=== PATIENT | male | born 1985 | race Caucasian/White ===

== ENCOUNTER 2018-10-26 22:06 | Emergency (ER) | payer MEDICAID ==
[2018-10-26 22:23] VITALS: O2SAT 96
--- NOTE | 2018-10-26 22:32 | ERPHSYRPT ---
- History of Present Illness Time Seen by Provider: 10/26/18 22:32 Historian: patient, family Exam Limitations: no limitations Patient Subjective Stated Complaint: Fever/Vomiting Triage Nursing Assessment: Patient ambulated back to ED and transferred self to bed. Patient A+O X 3. Patient complains of fever of 101.0 about one hour ago. Patient complains of vomiting for a few hours. Patient has non-productive cough. Patients lungs clear a/p victorino. Abdomen soft and round with BS X 4. Patient states his entire body aches 7/10. Physician History: 33 y/o white male presents with one day h/o fever to 101F, nonproductive cough, myalgias and arthralgias and vomiting. Timing/Duration: today Activities at Onset: none Quality: other (no abd pain) Severity of Pain-Max: none Severity of Pain-Current: none Modifying Factors: Improves With: coughing, vomiting Associated Symptoms: fever/chills, nausea, vomiting Previous symptoms: no prior history Allergies/Adverse Reactions: lidocaine Allergy (Verified 10/26/18 22:12) Hx Influenza Vaccination/Date Given: No Immunizations Up to Date: Yes - Review of Systems Constitutional: Fever Eyes: No Symptoms Ears, Nose, & Throat: No Symptoms Respiratory: Cough Cardiac: No Symptoms Abdominal/Gastrointestinal: Nausea, Vomiting, No Abdominal Pain, No Diarrhea Genitourinary Symptoms: No Symptoms Musculoskeletal: No Symptoms Skin: No Symptoms Neurological: No Symptoms Psychological: No Symptoms Endocrine: No Symptoms Hematologic/Lymphatic: No Symptoms Immunological/Allergic: No Symptoms All Other Systems: Reviewed and Negative - Past Medical History Pertinent Past Medical History: No Neurological History: No Pertinent History ENT History: No Pertinent History Cardiac History: No Pertinent History Respiratory History: No Pertinent History Endocrine Medical History: No Pertinent History Musculoskeletal History: No Pertinent History GI Medical History: No Pertinent History History: No Pertinent History Psycho-Social History: No Pertinent History Male Reproductive Disorders: No Pertinent History - Past Surgical History Past Surgical History: Yes Neuro Surgical History: No Pertinent History Cardiac: No Pertinent History Respiratory: No Pertinent History Gastrointestinal: No Pertinent History Genitourinary: No Pertinent History Musculoskeletal: Orthopedic Surgery Male Surgical History: No Pertinent History Other Surgical History: Victorino knee surgery 2009 - Social History Smoking Status: Never smoker Exposure to second hand smoke: No Drug Use: none Patient Lives Alone: No - Nursing Vital Signs Nursing Vital Signs: Initial Vital Signs Temperature 98.2 F 10/26/18 22:14 Pulse Rate 124 H 10/26/18 22:14 Respiratory Rate 18 10/26/18 22:14 Blood Pressure 120/86 10/26/18 22:14 O2 Sat by Pulse Oximetry 96 10/26/18 22:14 Pain Scale Pain Intensity 7 - Physical Exam General Appearance: mild distress, alert, anxiety Eye Exam: PERRL/EOMI, eyes nml inspection Ears, Nose, Throat Exam: normal ENT inspection, TMs normal, pharynx normal, moist mucous membranes Neck Exam: normal inspection, non-tender, supple, full range of motion Respiratory Exam: normal breath sounds, lungs clear, airway intact, No chest tenderness, No respiratory distress, No accessory muscle use, No rhonchi, No wheezing, No stridor Cardiovascular Exam: tachycardia Gastrointestinal/Abdomen Exam: soft, normal bowel sounds, No tenderness, No guarding, No rebound Rectal Exam: not done Back Exam: normal inspection, normal range of motion, No CVA tenderness, No vertebral tenderness Extremity Exam: normal inspection, normal range of motion, pelvis stable Neurologic Exam: alert, oriented x 3, cooperative Skin Exam: normal color, warm, dry Lymphatic Exam: No adenopathy SpO2 Interpretation: normal SpO2: 96 O2 Delivery: Room Air - Course Nursing assessment & vital signs reviewed: Yes Ordered Tests: Active Orders 24 hr Category Date Time Status IV Insertion STAT Care 10/26/18 22:33 Active CHEST 1 VIEW (PORTABLE) Stat Exams 10/26/18 22:33 Taken AMYLASE Stat Lab 10/26/18 22:42 Completed CBC W DIFF Stat Lab 10/26/18 22:42 Completed CMP Stat Lab 10/26/18 22:42 Completed LIPASE Stat Lab 10/26/18 22:42 Completed Lactic Acid Stat Lab 10/26/18 23:20 Results [place] Screen Stat Lab 10/26/18 22:42 Completed UA W/RFX UR CULTURE Stat Lab 10/26/18 22:33 Uncollected Medication Summary Discontinued Medications Generic Name Dose Route Start Last Admin Trade Name Freq PRN Reason Stop Dose Admin Hydrocodone Bitart/Acetaminophen 15 ml 10/26/18 23:41 Hydrocodone-Acetamin 2.5-108/5 Ml Solution PO 10/26/18 23:42 STAT STA Sodium Chloride 1,000 mls @ 999 mls/hr 10/26/18 22:33 10/26/18 22:46 Sodium Chloride 0.9% 1000 Ml IV 10/26/18 23:33 999 mls/hr .Q1H1M STA Administration Sodium Chloride Confirm 10/26/18 22:42 Sodium Chloride 0.9% 1000 Ml Administered 10/26/18 22:43 Dose 1,000 mls @ ud .ROUTE .STK-MED ONE Ondansetron HCl 4 mg 10/26/18 22:33 10/26/18 22:43 Zofran 4 Mg/2 Ml Vial IV 10/26/18 22:34 4 mg STAT ONE Administration Ondansetron HCl Confirm 10/26/18 22:42 Zofran 4 Mg/2 Ml Vial Administered 10/26/18 22:43 Dose 4 mg .ROUTE .STK-MED ONE Lab/Rad Data: Laboratory Result Diagrams 10/26/18 22:42 10/26/18 22:42 Laboratory Results 10/26/18 10/26/18 10/26/18 Range/Units 23:20 23:10 22:42 WBC (4.0-10.5) K/mm3 RBC (4.1-5.6) M/mm3 Hgb (12.5-18.0) gm/dl Hct (42-50) % MCV (78-100) fl MCH (26-32) pg MCHC (32-36) g/dl RDW (11.5-14.0) % Plt Count (150-450) K/mm3 MPV (6-9.5) fl Gran % (36.0-66.0) % Eos # (Auto) (0-0.5) Absolute Lymphs (auto) (1.0-4.6) Absolute Monos (auto) (0.0-1.3) Lymphocytes % (24.0-44.0) % Monocytes % (0.0-12.0) % Eosinophils % (0.00-5.0) % Basophils % (0.0-0.4) % Absolute Granulocytes (1.4-6.9) Basophils # (0-0.4) Sodium (137-145) mmol/L Potassium (3.5-5.1) mmol/L Chloride (98-107) mmol/L Carbon Dioxide (22-30) mmol/L Anion Gap (5-15) MEQ/L BUN (9-20) mg/dL Creatinine (0.66-1.25) mg/dL Estimated GFR ML/MIN Glucose (74-106) mg/dL Lactic Acid 2.5 H (0.4-2.0) Calcium (8.4-10.2) mg/dL Total Bilirubin (0.2-1.3) mg/dL AST (17-59) U/L ALT (0-50) U/L Alkaline Phosphatase (38-126) U/L Serum Total Protein (6.3-8.2) g/dL Albumin (3.5-5.0) g/dL Amylase (30-110) U/L Lipase (23-300) U/L Monoscreen NEGATIVE (Negative) Influenza Type A Ag POSITIVE (NEGATIVE) Influenza Type B Ag NEGATIVE (NEGATIVE) RSV (PCR) NEGATIVE (Negative) Group A Strep Antibody POSITIVE (NEGATIVE) 10/26/18 10/26/18 Range/Units 22:42 22:42 WBC 7.2 (4.0-10.5) K/mm3 RBC 5.36 (4.1-5.6) M/mm3 Hgb 16.3 (12.5-18.0) gm/dl Hct 47.7 (42-50) % MCV 89.0 (78-100) fl MCH 30.4 (26-32) pg MCHC 34.2 (32-36) g/dl RDW 13.4 (11.5-14.0) % Plt Count 220 (150-450) K/mm3 MPV 9.9 H (6-9.5) fl Gran % 77.4 H (36.0-66.0) % Eos # (Auto) 0.05 (0-0.5) Absolute Lymphs (auto) 0.81 L (1.0-4.6) Absolute Monos (auto) 0.73 (0.0-1.3) Lymphocytes % 11.3 L (24.0-44.0) % Monocytes % 10.2 (0.0-12.0) % Eosinophils % 0.7 (0.00-5.0) % Basophils % 0.4 (0.0-0.4) % Absolute Granulocytes 5.53 (1.4-6.9) Basophils # 0.03 (0-0.4) Sodium 139 (137-145) mmol/L Potassium 3.8 (3.5-5.1) mmol/L Chloride 105 (98-107) mmol/L Carbon Dioxide 26 (22-30) mmol/L Anion Gap 12.7 (5-15) MEQ/L BUN 8 L (9-20) mg/dL Creatinine 1.19 (0.66-1.25) mg/dL Estimated GFR > 60.0 ML/MIN Glucose 166 H (74-106) mg/dL Lactic Acid (0.4-2.0) Calcium 9.3 (8.4-10.2) mg/dL Total Bilirubin 0.40 (0.2-1.3) mg/dL AST 28 (17-59) U/L ALT 44 (0-50) U/L Alkaline Phosphatase 62 (38-126) U/L Serum Total Protein 7.5 (6.3-8.2) g/dL Albumin 4.3 (3.5-5.0) g/dL Amylase 55 (30-110) U/L Lipase 92 (23-300) U/L Monoscreen (Negative) Influenza Type A Ag (NEGATIVE) Influenza Type B Ag (NEGATIVE) RSV (PCR) (Negative) Group A Strep Antibody (NEGATIVE) - Progress Progress: improved, re-examined Progress Note: 10/26/18 23:40 cxr- no acute process. Counseled pt/family regarding: lab results, diagnosis, need for follow-up - Departure Departure Disposition: Home Clinical Impression: Influenza A Condition: Stable Critical Care Time: No Referrals: DOCTOR,NO FAMILY [Primary Care Provider] - Additional Instructions: drink plenty of fluids. add ibuprofen for aches and fever. take medications as prescribed. follow up with primary doctor for persistent symptoms Prescriptions: Hydrocodone Bit/Acetaminophen [Hydrocodone-Acetaminophen Soln] 10 ml PO Q6H # 120 ml Oseltamivir 75 mg [Tamiflu 75MG Capsule] 75 mg PO BID #10 cap
[2018-10-26] MEDS ORDERED: Sodium Chloride 0.9% 1000 ML 1,000 ML IV STA (22:33)
[2018-10-26] MEDS ORDERED: Zofran 4 MG/2 ML VIAL IV ONE (22:33)
[2018-10-26] MEDS ORDERED: Sodium Chloride 0.9% 1000 ML 1,000 ML ONE (22:42)
[2018-10-26] MEDS ORDERED: Zofran 4 MG/2 ML VIAL ONE (22:42)
[2018-10-26 22:46] LABS: BASOPHIL % 0.4 % (0.0-0.4); Basophil (Absolute #) 0.03 (0-0.4); Eosinophil % 0.7 % (0.00-5.0); Eosinophil (Absolute #) 0.05 (0-0.5); Granulocyte Absolute (ANC) 5.53 (1.4-6.9); Granulocytes % 77.4 % (36.0-66.0); Hematocrit 47.7 % (42-50); Hemoglobin 16.3 gm/dl (12.5-18.0); Lymphocyte (Absolute #) 0.81 (1.0-4.6); Lymphocytes % 11.3 % (24.0-44.0); Mean Corpuscular Hemoglobin 30.4 pg (26-32); Mean Corpuscular Hgb Concent. 34.2 g/dl (32-36); Mean Platelet Volume 9.9 fl (6-9.5); Monocyte (Absolute #) 0.73 (0.0-1.3); Monocytes % 10.2 % (0.0-12.0); Platelet Count 220 K/mm3 (150-450); Red Blood Count 5.36 M/mm3 (4.1-5.6); Red Cell Distribution Width 13.4 % (11.5-14.0); White Blood Count 7.2 K/mm3 (4.0-10.5)
[2018-10-26 23:01] LABS: ALBUMIN 4.3 g/dL (3.5-5.0); ALKALINE PHOSPHATASE 62 U/L (38-126); AMYLASE 55 U/L (30-110); ANION GAP 12.7 MEQ/L (5-15); BLOOD UREA NITROGEN 8 mg/dL (9-20); CHLORIDE 105 mmol/L (98-107); Calcium 9.3 mg/dL (8.4-10.2); Carbon Dioxide 26 mmol/L (22-30); Creatinine 1 1.19 mg/dL (0.66-1.25); Glucose 166 mg/dL (74-106); LIPASE 92 U/L (23-300); Potassium 3.8 mmol/L (3.5-5.1); SGOT/AST 28 U/L (17-59); SGPT/ALT 44 U/L (0-50); SODIUM 139 mmol/L (137-145); Total Protein 7.5 g/dL (6.3-8.2)
[2018-10-26 23:26] LABS: Lactic Acid 2.5 (0.4-2.0)
[2018-10-26] MEDS ORDERED: HYDROCODONE-ACETAMIN 2.5-108/5 ML SOLUTION PO STA (23:41)
[2018-10-26 23:43] LABS: Group A Strep POSITIVE (NEGATIVE)
[2018-10-26 23:44] LABS: INFLUENZA A POSITIVE (NEGATIVE); INFLUENZA B NEGATIVE (NEGATIVE); RESPIRATORY SYNCTIAL VIRUS NEGATIVE (Negative)
[2018-10-26] MEDS ORDERED: Tamiflu 75MG Capsule PO ONE ×2 (23:51→23:55)
[2018-10-26] MEDS ORDERED: AMOXIL 500 MG PO ONE (23:52)
[2018-10-26] MEDS ORDERED: HYDROCODONE-ACETAMIN 2.5-108/5 ML SOLUTION ONE (23:56)
[2018-10-26] MEDS ORDERED: AMOXIL 500 MG ONE (23:56)
[2018-10-27 00:09] VITALS: BP 122/86; PULSE 89
--- NOTE | 2018-10-27 09:21 | XRAY ---
Indication: Fever and cough. Comparison: None Portable chest demonstrates normal heart and lungs. Bony thorax intact.
== END 2018-10-27 00:18 | disposition home or self-care (01) ==
LOC: ED 22:06
DX: J10.1 Influenza due to other identified influenza virus with other respiratory manifestations (principal)
CPT/HCPCS: 36000; 36415; 71045; 80053; 82150; 83605; 83690; 85025; 86308; 87631; 87651; 96360; 96374; 99284; J2405; A9270-GY